=== PATIENT | male | born 1975 | race Caucasian/White ===

== ENCOUNTER 2017-01-31 09:51 | Emergency (ER) | payer OTHER ==
--- NOTE | 2017-01-31 10:12 | EDM.PDOC ---
ED HPI GENERAL MEDICAL PROBLEM - General Chief Complaint: Back Pain or Injury Stated Complaint: BACK PAIN Time Seen by Provider: 01/31/17 10:04 - History of Present Illness INITIAL COMMENTS - FREE TEXT/NARRATIVE: HISTORY AND PHYSICAL: History of present illness: Patient 42-year-old white male history of chronic back pain with a prior spinal fusion at L5-S1 who presents with a concern of lower back discomfort he denies numbness weakness incontinence or retention of bowel or bladder he denies any new trauma he states he's unwell over the last 3 years since his surgery with intermittent episodes of pain Review of systems: As per history of present illness and below otherwise all systems reviewed and negative. Past medical history: As per history of present illness and as reviewed below otherwise noncontributory. Surgical history: As per history of present illness and as reviewed below otherwise noncontributory. Social history: No reported history of drug or alcohol abuse. Family history: As per history of present illness and as reviewed below otherwise noncontributory. Physical exam: HEENT: Atraumatic, normocephalic, pupils reactive, negative for conjunctival pallor or scleral icterus, mucous membranes moist, throat clear, neck supple, nontender, trachea midline. Lungs: Clear to auscultation, breath sounds equal bilaterally, chest nontender. Heart: S1S2, regular, negative for clicks, rubs, or JVD. Abdomen: Soft, nondistended, nontender. Negative for masses or hepatosplenomegaly. Negative for costovertebral tenderness. Pelvis: Stable nontender. Genitourinary: Deferred. Rectal: Deferred. Extremities: Atraumatic, negative for cords or calf pain. Neurovascular unremarkable. Neuro: Awake, alert, oriented. Cranial nerves II through XII unremarkable. Cerebellum unremarkable. Motor and sensory unremarkable throughout. Exam nonfocal. Back: Patient is some mild tenderness in paravertebral region at the level of the lumbar spine is no vertebral body or point tenderness patient is able to stand on his toes back on his heels deep tendon reflexes are normal Diagnostics: None Therapeutics: None Impression: #1 chronic back pain with acute exacerbation #2 history of degenerative disc disease Definitive disposition and diagnosis as appropriate pending reevaluation and review of above. - Related Data Allergies Allergy/AdvReac Type Severity Reaction Status Date / Time No Known Allergies Allergy Verified 01/31/17 10:03 Home Meds: Home Meds Ibuprofen [Ibuprofen] 800 mg PO ASDIRECTED PRN 01/31/17 [History] ED ROS GENERAL - Review of Systems Review Of Systems: ROS reveals no pertinent complaints other than HPI. ED EXAM, GENERAL - Physical Exam Exam: See Below (See dictation) Course - Vital Signs Last Recorded V/S: Last Vital Signs Temp 35.9 C 01/31/17 10:00 Pulse 83 01/31/17 10:00 Resp 12 01/31/17 10:00 BP 121/73 01/31/17 10:00 Pulse Ox 95 01/31/17 10:00 Departure - Departure Time of Disposition: 10:12 Disposition: Home, Self-Care 01 Condition: Good Clinical Impression: Back pain - Discharge Information Referrals: PCP,None [Primary Care Provider] - Additional Instructions: The following information is given to patients seen in the emergency department who are being discharged to home. This information is to outline your options for follow-up care. We provide all patients seen in our emergency department with a follow-up referral. The need for follow-up, as well as the timing and circumstances, are variable depending upon the specifics of your emergency department visit. If you don't have a primary care physician on staff, we will provide you with a referral. We always advise you to contact your personal physician following an emergency department visit to inform them of the circumstance of the visit and for follow-up with them and/or the need for any referrals to a consulting specialist. The emergency department will also refer you to a specialist when appropriate. This referral assures that you have the opportunity for followup care with a specialist. All of these measure are taken in an effort to provide you with optimal care, which includes your followup. Under all circumstances we always encourage you to contact your private physician who remains a resource for coordinating your care. When calling for followup care, please make the office aware that this follow-up is from your recent emergency room visit. If for any reason you are refused follow-up, please contact the [facility] emergency department at and asked to speak to the emergency department charge nurse. [facility] [address] [place] [id number] Tramadol Medrol Flexeril as prescribed call schedule routine appointment above return as needed as discussed
== END 2017-01-31 10:28 | disposition home or self-care (01) ==
LOC: MW.ED 09:51 → MW.OB 09:59 → MW.ED 10:28
DX: M54.5 Low back pain (principal); G89.29 Other chronic pain; Z98.1 Arthrodesis status
CPT/HCPCS: 99282; 99283